=== PATIENT | female | born 1995 | race Caucasian/White ===

== ENCOUNTER 2017-09-28 12:42 | Emergency (ER) | payer MEDICAID ==
[2017-09-28 13:43] LABS: KETONE, URINE AUTO RFX NEGATIVE (NEGATIVE); LEUKOCYTE ESTERASE UR AUTO RFX NEGATIVE (NEGATIVE); MUCUS, URINE RFX MODERATE (NEGATIVE); NITRITE, URINE AUTO RFX NEGATIVE (NEGATIVE); RBC, URINE AUTO RFX 16 /HPF (0-3); SPECIFIC GRAVITY UR AUTO RFX 1.023 (1.002-1.035); SQUAM EPITHELIAL CELL UR AURFX 8 /HPF (0-6); WBC, URINE AUTO RFX 1 /HPF (0-3)
== END 2017-09-28 15:31 | disposition home or self-care (01) ==
LOC: M ED 12:42
DX: M54.5 Low back pain (principal); G89.29 Other chronic pain; F41.9 Anxiety disorder, unspecified; F32.9 Major depressive disorder, single episode, unspecified; Z88.2 Allergy status to sulfonamides
CPT/HCPCS: 81001

== ENCOUNTER → 2017-12-21 | Outpatient (REF) | payer OTHER ==
[2017-12-21 13:12] LABS: ANION GAP 8 MEQ/L (8-16); BLOOD UREA NITROGEN 19 MG/DL (7-18); CALCIUM LEVEL 9.4 MG/DL (8.5-10.1); CARBON DIOXIDE LEVEL 25 MEQ/L (21-32); CHLORIDE LEVEL 107 MEQ/L (98-107); CREATININE FOR GFR 0.72 MG/DL (0.55-1.30); GLOMERULAR FILTRATION RATE > 60.0 (>60); GLUCOSE, FASTING 87 MG/DL (70-100); POTASSIUM SERUM 4.5 MEQ/L (3.5-5.1); SODIUM LEVEL 140 MEQ/L (136-145)
== END ==
LOC: M SFHCPLAZ 08:15
DX: Z00.00 Encounter for general adult medical examination without abnormal findings (principal)
CPT/HCPCS: 80048

== ENCOUNTER → 2018-01-18 | Outpatient (REF) | payer OTHER | LOC: M SFHCPLAZ 12:28 | DX: M54.5 Low back pain (principal) ==

== ENCOUNTER → 2018-01-19 | Outpatient (CLI) | payer OTHER ==
[2018-01-19 19:08] LABS: C REACTIVE PROTEIN QUANTITATIV < 0.30 MG/DL (0.00-0.30)
[2018-01-19 19:37] LABS: ERYTHROCYTE SEDIMENTATION RATE 2 mm/hr (0-20)
[2018-01-26 00:06] LABS: HLA-B27 Negative (.)
== END ==
LOC: M LAB 18:11
DX: M54.5 Low back pain (principal); M54.6 Pain in thoracic spine
CPT/HCPCS: 72072

== ENCOUNTER → 2018-02-20 | Outpatient (CLI) | payer OTHER ==
[~2018-02-20] MED LIST: HYDR50TA70 PO; MICROGESTIN PO; NAPR-885 PO; ROBA500T PO
--- NOTE | 2018-02-21 03:42 | REP ---
Clinical: Back pain and sciatica. Technique: AP and lateral views of the cervical spine. Findings: Alignment and lordosis maintained. Vertebral bodies and disc spaces are normal. Prevertebral soft tissues are normal. Impression: Normal cervical spine radiographs. Electronically Signed by Red Pendleton MD 02/21/2018 03:33 A
--- NOTE | 2018-02-21 03:54 | REP ---
Clinical: thoracic pain. Sciatica. Technique: AP, lateral, and swimmers views. Findings: Alignment and kyphosis is maintained. Vertebral bodies intact. No acute fracture / compression injury or subluxation. No degenerative changes. Paravertebral soft tissues are normal. Impression: Normal thoracic spine series. Electronically Signed by Red Pendleton MD 02/21/2018 03:45 A
--- NOTE | 2018-02-21 09:06 | REP ---
TWO VIEW LUMBAR SPINE RADIOGRAPHS: HISTORY: Sciatica. COMPARISON STUDY: January 19, 2018. FINDINGS: There is a mild levoconvex scoliotic curve unchanged. Vertebral body heights are preserved. Disc spaces are maintained. Alignment is otherwise normal. Pedicles and posterior elements are intact. Sacrum and SI joints are unremarkable. IMPRESSION: Levoconvex curvature unchanged from January 19, 2018. No other abnormality. Electronically Signed by Lane Taylor MD 02/21/2018 09:34 A
== END ==
LOC: M RAD 17:09
PROVIDERS: ATTEND Chiropractor
DX: M41.27 Other idiopathic scoliosis, lumbosacral region (principal); M54.41 Lumbago with sciatica, right side; M99.03 Segmental and somatic dysfunction of lumbar region; M99.01 Segmental and somatic dysfunction of cervical region; M54.13 Radiculopathy, cervicothoracic region